=== PATIENT | female | born 2000 | race Caucasian/White ===

== ENCOUNTER 2025-06-16 11:12 | Emergency (ER) | payer OTHER, SELFPAY ==
[2025-06-16 11:18] VITALS: BP 150/88; PULSE 87; RESP 20; TEMP 36.6; O2SAT 100
--- NOTE | 2025-06-16 11:28 | ED_ITS ---
HPI - Ear Problem General Chief complaint: Ear Stated complaint: right ear Time Seen by Provider: 06/16/25 11:28 Source: patient Mode of arrival: ambulatory Limitations: no limitations History of Present Illness HPI Narrative: 24 yo F presents with R ear pain for 3 days. URI symptoms for 1 wk. States her children tested positive for flu B so she assumed she had it. Taking OTC to treat flu symptoms. Afebrile. All systems reviewed and negative except as noted above. Related Data Home Medications ?Medication ?Instructions ?Recorded ?Confirmed ?Last Taken ?Type ferrous sulfate 325 mg (65 mg mg 06/16/25 Unknown His tory iron) tablet (FeroSul) sertraline 25 mg tablet mg 06/16/25 Unknown History sertraline 50 mg tablet mg 06/16/25 Unknown History Allergies Allergy/AdvReac Type Severity Reaction Status Date / Time latex Allergy Unknown Unknown Verified 06/16/25 11:23 [facility] At time of signature, agree with nursing past medical, surgical, social and family history. There is no relevant family history pertinent to the presenting complaint. Exam Narrative: GENERAL: This is a well-nourished, well-developed patient, in no apparent distress. HEAD: normocephalic, atraumatic. EYES: PERRL. Sclera clear/white. Vision is grossly intact. EARS: External ears normal, auditory canals clear and without drainage, Clear fluid to left TM with no erythema. Right TM is erythematous, bulging with purulent fluid. No perforation bilaterally. NOSE: External nose normal with Mild congestion, clear nasal drainage THROAT: Mucous membranes moist, posterior pharynx clear. NECK: Neck supple, non-tender without lymphadenopathy, masses or thyromegaly. CARDIOVASCULAR: Regular rate and rhythm without murmurs, gallops, or rubs. RESPIRATORY: Clear to auscultation. Breath sounds equal bilaterally. No wheezes, rales, or rhonchi. SKIN: warm, Dry, intact with no suspicious lesions or rash, good texture and turgor. NEURO: awake, alert, and oriented to person, place and time. There were no obvious focal neurologic abnormalities. EXTREMITIES: No joint tenderness, effusion, or edema noted. Course Course Level of Care: Express Care Visit Vital Signs Vital signs: Vital Signs Temperature 36.6 C 06/16/25 11:18 Pulse Rate 87 06/16/25 11:18 Respiratory Rate 20 06/16/25 11:18 Blood Pressure 150/88 H 06/16/25 11:18 Pulse Oximetry 100 06/16/25 11:18 Oxygen Delivery Room Air 06/16/25 11:18 Temperature 36.6 C 06/16/25 11:18 Pulse Rate 87 06/16/25 11:18 Respiratory Rate 20 06/16/25 11:18 Blood Pressure 150/88 H 06/16/25 11:18 Pulse Oximetry 100 06/16/25 11:18 Oxygen Delivery Room Air 06/16/25 11:18 reviewed Medical Decision Making MDM Narrative Medical decision making narrative: will treat right otitis media with amoxicillin. Patient is well-appearing, nontoxic. Agrees with plan of care. Vital Signs Vital Signs: Vital Signs Temperature 36.6 C 06/16/25 11:18 Pulse Rate 87 06/16/25 11:18 Respiratory Rate 20 06/16/25 11:18 Blood Pressure 150/88 H 06/16/25 11:18 Pulse Oximetry 100 06/16/25 11:18 Oxygen Delivery Room Air 06/16/25 11:18 Temperature 36.6 C 06/16/25 11:18 Pulse Rate 87 06/16/25 11:18 Respiratory Rate 20 06/16/25 11:18 Blood Pressure 150/88 H 06/16/25 11:18 Pulse Oximetry 100 06/16/25 11:18 Oxygen Delivery Room Air 06/16/25 11:18 Discharge Plan Discharge Clinical Impression: Acute otitis media, right Patient Disposition: Home Condition: Stable Instructions: Antibiotic Form, Ear Infection (ED) Additional Instructions: Take antibiotic as prescribed until gone. Take ibuprofen or Tylenol every 6-8 hours as needed for pain. Follow-up with your primary care physician as needed. Patient Language: Yakut Prescriptions: New amoxicillin 875 mg tablet 875 mg PO Q12H 10 Days Qty: 20 0RF No Action ferrous sulfate [FeroSul] 325 mg (65 mg iron) tablet sertraline 25 mg tablet sertraline 50 mg tablet Follow-up/Referrals: PHYSICIAN,CHEESE COOKER [Primary Care Provider, Internal Medicine] Time of Disposition: 11:32
--- OUTSIDE RECORDS SUMMARY | 2025-06-16 11:33 | XMS_ITS | Clinical Summary ---
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 Epidural: Approach: midline Imaging guidance used: no Location: L3-4 Number of attempts:1 Epidural needle: Injection technique: ANGELES air and ANGELES saline Needle type: Tuohy Needle gauge: 18 G Needle length: 9 cm Loss of resistance: 7 cm Catheter: Catheter type: multi-orifice. Catheter at skin depth: 12 cm Negative aspiration of blood: no Negative aspiration of CSF: no Test dose: negative (3mL 1.5% Lido w epi 1:200k) Assessment: Sensory level - left: full eval pending Sensory level - right: full eval pending Events: patient tolerated procedure well with no complications us Brisa Bennett MD ANESTHESIA ORDERABL ES Final Result * eGFR (04/25/2025 10:05 PM CDT) eGFR >90 >=60 mL/min/1. 73 m2 Comment: Interpretive Data Reference Interval Normal >/= 90 mL/min/1.73m2 Mildly decreased* 60 - 89 mL/min/1.73m2 Mildly to moderately decreased 45 - 59 mL/min/1.73m2 Moderately to severely decreased 30 - 44 mL/min/1.73m2 Severely decreased 15 - 29 mL/min/1.73m2 Kidney Failure < 15 mL/min/1.73m2 *Relative to young adult level Estimated glomerular filtration rate is determined by the 2020 CKD-EPI equation recommended by the National Kidney Foundation (A Unifying Approach to GFR Estimation: Recommendations of the NKF-ASK Task Force on Reassessing the Inclusion of Race in Diagnosing Kidney Disease, JASN 2020). The CKD-EPI equation should not be used for patients with unstable renal function and has not been validated in children and those over 70. Current interpretive data was last reviewed 2021. Blood 04/25/2025 10:0 5 PM CDT 04/26/2025 3:26 AM CDT us Brisa Bennett MD LAB BLOOD ORDERABLE S Final Result [facility] ([place]OM[place] [facility]) 1 [facility] [place] [address] * (ABNORMAL) Differential, auto (04/25/2025 10:05 PM CDT) Neutrophil abs 10.89(H) 1.50 - 6.50 K/cumm Imm gran abs 0.10 0.00 - 0.10 K/cumm [facility] (JUDIE) Lymphocyte abs 1.81 0.80 - 3.30 K/cumm [facility] (JUDIE) Monocyte abs 0.67 0.20 - 0.80 K/cumm [facility] (JUDIE) Eosinophil abs 0.04 0.00 - 0.50 K/cumm [facility] (JUDIE) Basophil abs 0.02 0.00 - 0.10 K/cumm [facility] (JUDIE) Neutrophil pct 80.5 % [facility] (JUDIE) Comment: Interpretive Data Percent cell count reference ranges are not reported, since discordance with absolute values may lead to misinterpretation of CBC data. Current Interpretive Data was last revised on 2018. Imm gran pct 0.7 % [facility] (JUDIE) Comment: Interpretive Data Percent cell count reference ranges are not reported, since discordance with absolute values may lead to misinterpretation of CBC data. Current Interpretive Data was last revised on 2018. Lymphocyte pct 13.4 % [facility] (JUDIE) Comment: Interpretive Data Percent cell count reference ranges are not reported, since discordance with absolute values may lead to misinterpretation of CBC data. Current Interpretive Data was last revised on 2018. Monocyte pct 5.0 % [facility] (JUDIE) Comment: Interpretive Data Percent cell count reference ranges are not reported, since discordance with absolute values may lead to misinterpretation of CBC data. Current Interpretive Data was last revised on 2018. Eosinophil pct 0.3 % [facility] (JUDIE) Comment: Interpretive Data Percent cell count reference ranges are not reported, since discordance with absolute values may lead to misinterpretation of CBC data. Current Interpretive Data was last revised on 2018. Basophil pct 0.1 % [facility] (JUDIE) Comment: Interpretive Data Percent cell count reference ranges are not reported, since discordance with absolute values may lead to misinterpretation of CBC data. Current Interpretive Data was last revised on 2018. Blood 04/25/2025 10:0 5 PM CDT 04/25/2025 10:10 PM CDT us Brisa Bennett MD LAB BLOOD ORDERABLE S Final Result ÁNGEL [facility] (JUDIE) 1 [facility] [place] [address] * (ABNORMAL) CBC with auto differential (04/25/2025 10:05 PM CDT) WBC 13.53(H) 3.80 - 9.90 K/cumm Hgb 11.2(L) 11.9 - 15.5 g/dL ÁNGEL [facility] (JUDIE) Hct 33.9(L) 35.6 - 45.5 % [facility] (JUDIE) Plt 240 150 - 400 K/cumm [facility] (JUDIE) MPV 11.3 9.1 - 12.3 fL [facility] ([facility]UD[facility]) RBC 3.83(L) 3.90 - 5.20 M/cumm [facility] (JUDIE) MCV 88.5 81.3 - 96.4 fL [facility] (JUDIE) MCH 29.2 27.1 - 33.3 pg Á[facility]EL [facility] (JUDIE) MCHC 33.0 32.3 - 35.7 g/dL [facility] (JUDIE) RDW CV 13.2 11.1 - 14.9 % [facility] (JUDIE) RDW SD 42.8 35.7 - 48.1 fL [facility] (JUDIE) NRBC abs 0.00 0.00 - 0.01 K/cumm [facility] (JUDIE) Blood 04/25/2025 10:0 5 PM CDT 04/25/2025 10:10 PM CDT us Brisa Bennett MD LAB BLOOD ORDERABLE S Final Result ÁNGEL [facility] (JUDIE) 1 [facility] [place] [address] * ABO/Rh (04/25/2025 10:05 PM CDT) ABO/Rh O Positive Blood 04/25/2025 10:0 5 PM CDT 04/25/2025 10:10 PM CDT Narrative [facility] (JUDIE) - 04/25/2025 11:09 PM CDT Has the patient had Daratumumab or Isatuximab in the past 6 months?->Unknown Brisa Bennett MD LAB BLOOD BANK TEST ORDERABLES Final Result ÁNGEL [facility]DON[facility] (JUDIE) 1 [facility] [employer] [place] [address] [place] [address] * RPR Blood (04/25/2025 10:05 PM CDT) RPR Nonreactive Nonreactive Comment:Testing performed by : [facility], [address] [place] [address], [place]., [address] Blood 04/25/2025 10:0 5 PM CDT 04/26/2025 9:40 AM CDT us Brisa Bennett MD LAB MICROBIOLOGY - GENERAL ORDERABLES Final Result ÁNGEL MALDONAD[facility] ([place]) [address] [place] [address] * Antibody screen (04/25/2025 10:05 PM CDT) [facility] Sallie, indirect, Gel Interpretation Negative ABSC Blood 04/25/2025 10:0 5 PM CDT 04/25/2025 10:10 PM CDT Narrative [facility] (SOM[place]) - 04/25/2025 11:09 PM CDT Has the patient had Daratumumab or Isatuximab in the past 6 months?->Unknown us Brisa Bennett MD LAB BLOOD BANK TEST ORDERABLES Final Result Performing Organization Address [facility] Co de Phone Number ÁNGEL MALDON[facility] (SOMES BAR) 1 [facility] [address] [place] [address] * Uric acid (04/25/2025 10:05 PM CDT) [facility] Uric acid 4.8 2.5 - 7.0 mg/dL Blood 04/25/2025 10:0 5 PM CDT 04/26/2025 3:26 AM CDT Brisa Bennett MD LAB BLOOD ORDERABLE S Final Result Performing Organization Address City/[facility]/ZIP Co de Phone Number ÁNGEL [facility]DON[facility] (SOMES BAR) 1 [place] [address] * Lactate dehydrogenase (LD) (04/25/2025 10:05 PM CDT) Lactate dehydrogenase (LDH) 165 100 - 250 Units/L Blood 04/25/2025 10:0 5 PM CDT 04/26/2025 3:26 AM CDT us Brisa Bennett MD LAB BLOOD ORDERABLE S Final Result [facility] ([place] [facility]) 1 [facility] [place] [address] * (ABNORMAL) Comprehensive metabolic panel (04/25/2025 10:05 PM CDT) Sodium 139 135 - 145 mmol/L Potassium, pl 4.0 3.3 - 4.9 mmol/L [facility] (JUDIE) Chloride 104 97 - 110 mmol/L [facility] (JUDIE) CO2 21(L) 22 - 32 mmol/L [facility] (JUDIE) Anion gap 14 2 - 15 mmol/L [facility] (JUDIE) BUN 5(L) 6 - 25 mg/dL [facility] (JUDIE) Creatinine 0.60 0.60 - 1.10 mg/dL [facility] (JUDIE) Glucose 79 70 - 199 mg/dL [facility] Comment: Interpretive Data Fasting glucose >/= 126 mg/dl is diagnostic for diabetes. Fasting is defined as no caloric intake for at least 8 hours. Fasting glucose between 100 mg/dl to 125 mg/dl is diagnostic of prediabetes. In a patient with classic symptoms of hyperglycemia or hyperglycemic crisis, a random glucose >/= 200 mg/dl is diagnostic for diabetes. In the absence of unequivocal hyperglycemia, results should be confirmed by repeat testing. The classification and Diagnosis of Diabetes Diabetes Care 202; 46: S19-S40. Current interpretive data was last revised 2022. Calcium 8.6 8.5 - 10.3 mg/dL [facility] (JUDIE) Bilirubin, total 0.2 0.1 - 1.2 mg/dL [facility] (JUDIE) Protein, pl 6.2(L) 6.5 - 8.5 g/dL [facility] (JUDIE) Albumin 3.3(L) 3.5 - 5.0 g/dL [facility] (JUDIE) Alk phos 148(H) 40 - 130 Units/L [facility] (JUDIE) ALT 13 7 - 45 Units/L [facility] (JUDIE) AST 15 10 - 45 Units/L [facility] (JUDIE) Blood 04/25/2025 10:0 5 PM CDT 04/26/2025 3:26 AM CDT us Brisa Bennett MD LAB BLOOD ORDERABLE S Final Result ÁNGEL MALDONADO (JUDIE) 1 [facility] [address] [place] [address] * ROM Plus (IGFBP-1/AFP) (04/25/2025 8:20 PM CDT) Pathologist [facility] IFG Binding Protein-1 / AFP Positive Swab 04/25/2025 8:20 PM CDT 04/25/2025 8:34 PM CDT us Brisa Bennett MD LAB BODY FLUIDS AND STOOLS ORDERABLES Final Result Performing Organization Address City/[facility] Co de Phone Number ÁNGEL MALDONADO (SOMES BAR) 1 [facility] [place] [address] * POCT urine glucose and protein (04/22/2025 1:26 PM CDT) Pathologist [facility] Glucose, ur, POC Negative Negative Protein, ur, POC Negative Negative Lot Number [id number] Urine 04/22/2025 1:26 PM CDT us Fatoumata Sellers MD POINT OF CARE TEST OR DERABLES Final Result * Group B streptococcal culture Vaginal/Rectal (04/15/2025 7:33 PM CDT) Report Final Report: Negative Comment:Testing performed by : [facility], 1 [facility] [place]., [address] Vaginal/Rectal 04/15/2025 7: 33 PM CDT 04/15/2025 10:26 PM CDT Narrative ÁNGEL RANGEL - 04/19/2025 9:31 AM CDT Testing performed by [facility] ([phone]). us Fatoumata Sellers MD LAB MICROBIOLOGY - GE NERAL ORDERABLES Final Result ÁNGEL [address] Department [place] [address] * POCT urine glucose and protein (04/15/2025 8:32 AM CDT) Glucose, ur, POC Negative Negative Protein, ur, POC Negative Negative Lot Number [id number] Urine 04/15/2025 8:32 AM CDT Fatoumata Sellers MD POINT OF CARE TEST OR DERABLES Final Result * US Ob Follow Up (04/15/2025 8:24 AM CDT) Anatomical Region Laterality Modality Abdomen N/A Ultrasound 04/18/2025 10:1 9 PM CDT Narrative 04/18/2025 10:22 PM CDT EXAM DESCRIPTION: US OB FOLLOW UP REASON FOR STUDY: large for dates, Check measurements and fluid levels S>D growth and kati TECHNIQUE: Limited transabdominal grayscale ultrasound for obstetrical evaluation. COMPARISON: Prior exam 03/17/2025 FINDINGS: Clinical gestational age: 36 weeks 2 days Clinical estimated Due Date: 05/11/2025 number: Single live intrauterine . Presentation: Cephalic Placenta location: Posterior and fundal. No previa. Amniotic fluid: KATI is 15.3 cm. MVP is 5.8 cm heart rate: 128 bpm measurements: Biparietal diameter: 8.8 cm ( 35 weeks 3 days ) Head circumference: 31.5 cm ( 35 weeks 2 days ) Abdominal circumference: 32.3 cm ( 36 weeks 2 days ) Femur length: 7.1 cm ( 3 6 weeks 2 days ) Ratios: FL/AC: 21.9 (20-24) HC/AC: 0.97 ( 0.93 - 1.09 ) Gestational age by this ultrasound: 35 weeks 4 days MAK by this ultrasound: 05/16/2025 Estimated weight by this ultrasound: 2838 g . 6 pounds 4 ounces. EFW percentile (based on LMP ): 46 % Cervix not well seen on this exam. IMPRESSION: 1. Single live intrauterine with average ultrasound age of 35 weeks 4 days with estimated date of delivery of May 16, 2025. 2. Estimated weight 2838 g 3. KATI is 15.3 cm. THIS IS AN ELECTRONICALLY VERIFIED FINAL REPORT 04/18/2025 10:22 PM - Electronically signed by Lorenzo Ibarra M.D. MJ: MARIA GUADALUPE Report ID: [id number] Reading Location: [id number] Procedure Note Lorenzo Ibarra MD - 04/18/2025 EXAM DESCRIPTION: US OB FOLLOW UP REASON FOR STUDY: large for dates, Check measurements and fluid levels S>D growth and kati TECHNIQUE: Limited transabdominal grayscale ultrasound for obstetrical evaluation. COMPARISON: Prior exam 03/17/2025 FINDINGS: Clinical gestational age: 36 weeks 2 days Clinical estimated Due Date: 05/11/2025 number: Single live intrauterine . Presentation: Cephalic Placenta location: Posterior and fundal. No previa. Amniotic fluid: KATI is 15.3 cm. MVP is 5.8 cm heart rate: 128 bpm measurements: Biparietal diameter: 8.8 cm ( 35 weeks 3 days ) Head circumference: 31.5 cm ( 35 weeks 2 days ) Abdominal circumference: 32.3 cm ( 36 weeks 2 days ) Femur length: 7.1 cm ( 3 6 weeks 2 days ) Ratios: FL/AC: 21.9 (20-24) HC/AC: 0.97 ( 0.93 - 1.09 ) Gestational age by this ultrasound: 35 weeks 4 days MAK by this ultrasound: 05/16/2025 Estimated weight by this ultrasound: 2838 g . 6 pounds 4 ounces. EFW percentile (based on LMP ): 46 % Cervix not well seen on this exam. IMPRESSION: 1. Single live intrauterine with average ultrasound age of 35 weeks 4 days with estimated date of delivery of May 16, 2025. 2. Estimated weight 2838 g 3. KATI is 15.3 cm. THIS IS AN ELECTRONICALLY VERIFIED FINAL REPORT 04/18/2025 10:22 PM - Electronically signed by Lorenzo Ibarra M.D. MJ: MARIA GUADALUPE Report ID: [id number] Reading Location: [place] [address] us Fatoumata Sellers MD IMG OB US PROCEDURES Final Result * Group B streptococcal culture (04/15/2025) SCRIBED Group B Strep Negative Negative us Fatoumata Sellers MD LAB MICROBIOLOGY - NERMT ORDERABLES Final Result * eGFR (04/13/2025 3:42 AM CDT) eGFR >90 >=60 mL/min/1. 73 m2 Comment: Interpretive Data Reference Interval Normal >/= 90 mL/min/1.73m2 Mildly decreased* 60 - 89 mL/min/1.73m2 Mildly to moderately decreased 45 - 59 mL/min/1.73m2 Moderately to severely decreased 30 - 44 mL/min/1.73m2 Severely decreased 15 - 29 mL/min/1.73m2 Kidney Failure < 15 mL/min/1.73m2 *Relative to young adult level Estimated glomerular filtration rate is determined by the 2020 CKD-EPI equation recommended by the National Kidney Foundation (A Unifying Approach to GFR Estimation: Recommendations of the NKF-ASK Task Force on Reassessing the Inclusion of Race in Diagnosing Kidney Disease, JASN 2020). The CKD-EPI equation should not be used for patients with unstable renal function and has not been validated in children and those over 70. Current interpretive data was last reviewed 2021. Blood 04/13/2025 3:42 AM CDT 04/13/2025 3:46 AM CDT us Isabela Meléndez DO LAB BLOOD ORDERABLES Fi nal Result ÁNGEL MALDONADO (SOMES BAR) 1 [facility] [place] [address] * (ABNORMAL) Differential, auto (04/13/2025 3:42 AM CDT) Neutrophil abs 12.44(H) 1.50 - 6.50 K/cumm Imm gran abs 0.10 0.00 - 0.10 K/cumm [facility] ([facility]OM[facility]) Lymphocyte abs 2.46 0.80 - 3.30 K/cumm [facility] ([place]OM[facility]) Monocyte abs 0.78 0.20 - 0.80 K/cumm [facility] ([place]) Eosinophil abs 0.04 0.00 - 0.50 K/cumm [facility] ([place] [facility]) Basophil abs 0.03 0.00 - 0.10 K/cumm [facility] ([place]) Neutrophil pct 78.5 % [facility] ([place]OM[place] [facility]) Comment: Interpretive Data Percent cell count reference ranges are not reported, since discordance with absolute values may lead to misinterpretation of CBC data. Current Interpretive Data was last revised on 2018. Imm gran pct 0.6 % [facility] ([place] [facility]) Comment: Interpretive Data Percent cell count reference ranges are not reported, since discordance with absolute values may lead to misinterpretation of CBC data. Current Interpretive Data was last revised on 2018. Lymphocyte pct 15.5 % [facility] ([place] [facility]) Comment: Interpretive Data Percent cell count reference ranges are not reported, since discordance with absolute values may lead to misinterpretation of CBC data. Current Interpretive Data was last revised on 2018. Monocyte pct 4.9 % [facility] ([place] [facility]) Comment: Interpretive Data Percent cell count reference ranges are not reported, since discordance with absolute values may lead to misinterpretation of CBC data. Current Interpretive Data was last revised on 2018. Eosinophil pct 0.3 % [facility] ([place] [facility]) Comment: Interpretive Data Percent cell count reference ranges are not reported, since discordance with absolute values may lead to misinterpretation of CBC data. Current Interpretive Data was last revised on 2018. Basophil pct 0.2 % [facility] (JUDIE) Comment: Interpretive Data Percent cell count reference ranges are not reported, since discordance with absolute values may lead to misinterpretation of CBC data. Current Interpretive Data was last revised on 2018. Blood 04/13/2025 3:42 AM CDT 04/13/2025 3:46 AM CDT us Isabela Meléndez DO LAB BLOOD ORDERABLES Fi nal Result [facility] (JUDIE) 1 [facility] [place] [address] * (ABNORMAL) CBC with auto differential (04/13/2025 3:42 AM CDT) WBC 15.85(H) 3.80 - 9.90 K/cumm Hgb 12.1 11.9 - 15.5 g/dL [facility] (JUDIE) Hct 36.6 35.6 - 45.5 % [facility] (JUDIE) Plt 283 150 - 400 K/cumm [facility] (JUDIE) MPV 11.6 9.1 - 12.3 fL [facility] (JUDIE) RBC 4.07 3.90 - 5.20 M/cumm [facility] (JUDIE) MCV 89.9 81.3 - 96.4 fL [facility] (JUDIE) MCH 29.7 27.1 - 33.3 pg [facility] (JUDIE) MCHC 33.1 32.3 - 35.7 g/dL [facility] (JUDIE) RDW CV 13.3 11.1 - 14.9 % [facility] (JUDIE) RDW SD 43.7 35.7 - 48.1 fL [facility] (JUDIE) NRBC abs 0.00 0.00 - 0.01 K/cumm [facility] (JUDIE) Blood 04/13/2025 3:42 AM CDT 04/13/2025 3:46 AM CDT Isabelaflorentino Zuñigath Medhat DO LAB BLOOD ORDERABLES Fi nal Result Performing Organization Address City/[facility] Hospital/ZIP Co de Phone Number ÁNGEL MALDONADO (SOMES BAR) 1 [facility] [address] [place] [address] * Uric acid (04/13/2025 3:42 AM CDT) Pathologist [facility] Uric acid 4.6 2.5 - 7.0 mg/dL Blood 04/13/2025 3:42 AM CDT 04/13/2025 3:46 AM CDT Isabela Oneilzabeth Medhat LAB BLOOD ORDERABLES Fi nal Result Performing Organization Address [facility] Co de Phone Number ÁNGEL MALDONADO (SOMES BAR) 1 [facility] [address] [place] [address] * Lactate dehydrogenase (LD) (04/13/2025 3:42 AM CDT) [facility] Lactate dehydrogenase (LDH) 199 100 - 250 Units/L Comment: Hemolysis present. Results may be affected. Slightly Hemolyzed Specimen Blood 04/13/2025 3:42 AM CDT 04/13/2025 3:46 AM CDT Isabela Danna Medhat DO LAB BLOOD ORDERABLES Fi nal Result Performing Organization Address City/[facility]/ZIP Co de Phone Number ÁNGEL MALDON[facility] (SOMES BAR) 1 [facility] [place] [address] * (ABNORMAL) Comprehensive metabolic panel (04/13/2025 3:42 AM CDT) Pathologist [facility] Sodium 138 135 - 145 mmol/L Potassium, pl 3.7 3.3 - 4.9 mmol/L [facility] (JUDIE) Chloride 101 97 - 110 mmol/L [facility] (JUDIE) CO2 21(L) 22 - 32 mmol/L [facility] (JUDIE) Anion gap 16(H) 2 - 15 mmol/L [facility] (JUDIE) BUN 6 6 - 25 mg/dL [facility] (JUDIE) Creatinine 0.56(L) 0.60 - 1.10 mg/dL [facility] (JUDIE) Glucose 67(L) 70 - 199 mg/dL [facility] (JUDIE) Comment: Interpretive Data Fasting glucose >/= 126 mg/dl is diagnostic for diabetes. Fasting is defined as no caloric intake for at least 8 hours. Fasting glucose between 100 mg/dl to 125 mg/dl is diagnostic of prediabetes. In a patient with classic symptoms of hyperglycemia or hyperglycemic crisis, a random glucose >/= 200 mg/dl is diagnostic for diabetes. In the absence of unequivocal hyperglycemia, results should be confirmed by repeat testing. The classification and Diagnosis of Diabetes Diabetes Care 2021; 46: S19-S40. Current interpretive data was last revised 2022. Calcium 9.2 8.5 - 10.3 mg/dL [facility] (JUDIE) Bilirubin, total 0.3 0.1 - 1.2 mg/dL [facility] (JUDIE) Protein, pl 6.9 6.5 - 8.5 g/dL [facility] (JUDIE) Albumin 3.5 3.5 - 5.0 g/dL [facility] (JUDIE) Alk phos 168(H) 40 - 130 Units/L [facility] (JUDIE) ALT 26 7 - 45 Units/L [facility] (JUDIE) AST 26 10 - 45 Units/L [facility] (JUDIE) Blood 04/13/2025 3:42 AM CDT 04/13/2025 3:46 AM CDT us Isabela Meléndez DO LAB BLOOD ORDERABLES Fi nal Result [facility] (JUDIE) 1 [facility] [place] [address] * (ABNORMAL) Urinalysis reflex to microscopic and culture Urine, clean voided (04/13/2025 1:30 AM CDT) Color, ur Yellow Yellow Clarity, ur Turbid(A) Clear [facility] (JUDIE) Specific gravity, ur 1.028 1.003 - 1.030 [facility] (JUDIE) pH, urine 6.0 [facility] (JUDIE) Comment: Interpretive Data U rine pH is affected by diet, medications, systemic acid-base disturbances, and renal tubular function. pH may affect urinary stone formation. For example, urine pH below 6.0 may help reduce the tendency for calcium phosphate stones and pH greater than 6.0 may reduce the tendency for uric acid stone formation. Source: [facility] Current Interpretive Data was last revised on 2017 Protein, ur ql 1+(A) Negative [facility] (JUDIE) Glucose, ur ql Negative Negative [facility] (JUDIE) Ketones, ur Trace Negative [facility] (JUDIE) Bilirubin, ur Negative Negative [facility] (JUDIE) Blood, ur Negative Negative [facility] (JUDIE) Urobilinogen, ur 2.0(A) <2.0 mg/dL [facility] ([place]) Nitrite, ur Negative Negative [facility] (JUDIE) Leukocyte esterase, ur 4+(A) Negative [facility] (JUDIE) UA reflex comment Reflex to microscopic UA will be performed. [facility] (JUDIE) Urine, clean voided 04/13/2025 1:30 AM CDT 04/13/2025 1:34 AM CDT Isabela Meléndez DO LAB MICROBIOLOGY - GENE [facility] ORDERABLES Final Result [facility] (SOMES BAR) 1 [facility] [place] [address] * Protein / creatinine ratio, urine, random (04/13/2025 1:30 AM CDT) Protein, ur, quant 35.0 mg/dL Comment: Interpretive Data No reference range established. Current interpretive data was last revised 2019. Creatinine Ur 286.3 mg/dL [facility] (JUDIE) Comment: Interpretive Data No reference range established. Current interpretive data was last revised 2019. Protein/creatinin e ratio 122.2 0.0 - 180.0 mg/g [facility] (JUDIE) Urine 04/13/2025 1:30 AM CDT 04/13/2025 1:53 AM CDT us Fatoumata Sellers MD LAB URINE ORDERABLES Final Result Performing Organization Address City/State/[facility] Co de Phone Number ÁNGEL MALDONADO (JUDIE) 1 [facility] [place] [address] * (ABNORMAL) Urinalysis, microscopic only (04/13/2025 1:30 AM CDT) WBC, ur 21-50(A) 0 - 5 /HPF RBC, ur 0-2 0 - 2 /HPF [facility] (JUDIE) Epithelial cells, squamous, ur 11-20(A) 0 - 5 /HPF [facility] (JUDIE) Bacteria, ur 1+(A) [facility] (JUDIE) Mucous, ur Present(A) [facility] (JUDIE) Calcium oxalate crystals, ur 1+(A) [facility] (JUDIE) Hyaline casts, ur 1-5 0 - 10 /LPF [facility] (JUDIE) Culture Reflex Comment Reflex to urine culture will be performed. [facility] (JUDIE) Urine, clean voided 04/13/2025 1:30 AM CDT 04/13/2025 1:34 AM CDT Isabela Meélndez DO LAB URINE ORDERABLES Fi nal Result ÁNGEL MALDONADO (JUDIE) 1 [facility] [place] [address] * Urine culture Urine, clean voided (04/13/2025 1:30 AM CDT) Report Final Report: Less than 100,000 colonies/mL (clinically insignificant growth based on current clinical standards) Comment:Testing performed by : [facility], [address] [facility], [place]., [address] Organism (CLINICALLY INSIGNIFICANT GROWTH [facility] (JUDIE) Urine, clean voided 04/13/2025 1:30 AM CDT 04/13/2025 8:26 AM CDT Narrative ÁNGEL MALDONADO (JUDIE) - 04/16/2025 2:40 PM CDT Urine culture reflexed based upon urinalysis results. Testing performed by [facility] ([phone]) Isabela Mleéndez DO LAB MICROBIOLOGY - GENE RAL ORDERABLES Final Result ÁNGEL MALDONADO (JUDIE) 1 [facility] Department [place] [address] * (ABNORMAL) POCT urine glucose and protein (04/02/2025 11:31 AM CDT) Glucose, ur, POC Negative Negative Protein, ur, POC Trace(A) Negative Lot Number [id number] Urine 04/02/2025 11:3 1 AM CDT Fatoumata Sellers MD POINT OF CARE TEST OR DERABLES Final Result * POCT urine glucose and protein (03/17/2025 8:54 AM CDT) Glucose, ur, POC Negative Negative Protein, ur, POC Negative Negative Lot Number [id number] Urine 03/17/2025 8:54 AM CDT Fatoumata Sellers MD POINT OF CARE TEST OR DERABLES Final Result * US Ob Follow Up (03/17/2025 8:48 AM CDT) Anatomical Region Laterality Modality Abdomen N/A Ultrasound 03/29/2025 7:20 AM CDT Narrative 03/29/2025 7:23 AM CDT EXAM DESCRIPTION: US OB FOLLOW UP REASON FOR STUDY: large for dates, Check measurements and fluid levels S>D growth and kati TECHNIQUE: Limited transabdominal grayscale ultrasound for obstetrical evaluation. COMPARISON: 12/24/2024. FINDINGS: The clinical age is 32 weeks 1 day with an MAK 05/11/2025. Single intrauterine with cephalic presentation. The placenta is posterior with no evidence of central previa. heart rate 136 beats per minute. Amniotic fluid index is 20.1 cm. BPD is 8.19 cm corresponding to 32 weeks 6 days. HC 29.96 cm corresponding to 33 weeks 1 day. AC is 30.42 cm corresponding to 34 weeks 3 days. FL is 6.19 cm corresponding to 32 weeks 1 day. The growth ratios are all normal. The estimated weight based on this ultrasound is 2205 g +/-331 g (4 pounds 14 ounces +/-12 ounces) which is at the 81st percentile. IMPRESSION: 1. Single intrauterine with cephalic presentation. 2. Expected interval growth with normal growth ratios. Estimated weight 81st percentile. 3. Amniotic fluid index 20.1 cm. THIS IS AN ELECTRONICALLY VERIFIED FINAL REPORT 03/29/2025 7:23 AM - Electronically signed by German Isaac M.D. CH: Report ID: [id number] Reading Location: [id number] Procedure Note German Isaac Jr., MD - 03/29/2025 EXAM DESCRIPTION: US OB FOLLOW UP REASON FOR STUDY: large for dates, Check measurements and fluid levels S>D growth and kati TECHNIQUE: Limited transabdominal grayscale ultrasound for obstetrical evaluation. COMPARISON: 12/24/2024. FINDINGS: The clinical age is 32 weeks 1 day with an MAK 05/11/2025. Single intrauterine with cephalic presentation. The placenta is posterior with no evidence of central previa. heart rate 136 beats per minute. Amniotic fluid index is 20.1 cm. BPD is 8.19 cm corresponding to 32 weeks 6 days. HC 29.96 cm corresponding to 33 weeks 1 day. AC is 30.42 cm corresponding to 34 weeks 3 days. FL is 6.19 cm corresponding to 32 weeks 1 day. The growth ratios are all normal. The estimated weight based on this ultrasound is 2205 g +/-331 g (4 pounds 14 ounces +/-12 ounces) which is at the 81st percentile. IMPRESSION: 1. Single intrauterine with cephalic presentation. 2. Expected interval growth with normal growth ratios. Estimated weight 81st percentile. 3. Amniotic fluid index 20.1 cm. THIS IS AN ELECTRONICALLY VERIFIED FINAL REPORT 03/29/2025 7:23 AM - Electronically signed by German Isaac M.D. CH: CLAIRE Report ID: [id number] Reading Location: [place] [address] Fatoumata Sellers MD IMG OB US PROCEDURES Final Result * Hepatitis C antibody Blood (10/02/2024 3:31 PM UTILITY LOCATOR) Hep C Ab Nonreactive Nonreactive Comment: Interpretive Data Nonreactive: Antibodies to HCV not detected. Does NOT exclude the possibility of recent exposure to HCV. Equivocal: Equivocal for HCV antibodies. Supplemental molecular testing will be automatically performed to determine infection status in accordance with current CDC screening recommendations. Reactive: Positive for HCV antibodies. This may represent current or past HCV infection. Supplemental molecular testing will be automatically performed to determine current infection status in accordance with current CDC screening recommendations. Interpretive data was last revised on 2020. Testing performed by: [facility], [address] [place] [address]., [id number] Blood 10/02/2024 3:31 PM UTILITY LOCATOR 10/02/2024 9:34 PM UTILITY LOCATOR Fatoumata Sellers MD LAB MICROBIOLOGY - GE NERAL ORDERABLES Final Result [address] Department [place] [address] * Pap with reflex to High Risk HPV and Genotyping (Cytology Component) (10/02/2024 11:11 AM UTILITY LOCATOR) Thin prep (Pap test) 10/02/2024 11:11 AM UTILITY LOCATOR 10/02/2024 11:11 AM UTILITY LOCATOR Narrative PATHOLOGY CH - 10/06/2024 2:07 PM UTILITY LOCATOR [facility] Department of Pathology [address] [place], [place] [id number] Final Report Note to Patients: This report may contain a detailed description of human tissue sent by a health care provider to the laboratory for pathologic evaluation. The content of this report is essential for diagnosis and may provide important critical findings. This information may be unfamiliar to patients to review without a medical professional present. It is advised that the patient review this report in the presence of a health care provider who can answer questions and explain the details. Patient Name: KATELYNN RODRIGUEZ [address]: [address] [place] [address] Gender: F : 2000 (Age: 23) Service: Location: N : [id number] [facility] #: [id number] Patient Type: SPECIMEN Taken: 10/02/2024 Received: 10/02/2024 Accessioned:: 10/05/2024 Reported: 10/06/2024 Physician(s): MD Fatoumata Cintron MD Diagnosis: SOURCE OF SPECIMEN Imaged Thinprep Pap Test w/ Reflex HPV - [employer] Cytologic Material: STATEMENT OF ADEQUACY - Satisfactory for evaluation; endocervical/transformation zone component present GENERAL CATEGORIZATION: - Negative for intraepithelial lesion or malignancy THA Alejo(ASCP) Report Electronically Reviewed and Signed Out By THA Alejo(ASCP) 10/06/2024 14:07:09Specimen(s) Received: A: Imaged Thinprep Pap Test w/ Reflex HPV - [employer] Cytologic Material Clinical History: Last Menstrual Period: 07/22/24 Menstrual History: The Pap test is a screening test used to aid in the detection of cervical cancer and its precursors. It should not be the sole means by which malignant and premalignant lesions are diagnosed. Both false negative and false positive results may occur. It also has poor sensitivity for the detection of endometrial lesions and should not be used to evaluate suspected endometrial abnormalities. For these reasons it is most important to obtain Pap tests at regular intervals. The performance characteristics of some immunohistochemical stains, fluorescence in-situ hybridization tests and immunophenotyping by flow cytometry cited in this report (if any) were determined by the Surgical Pathology Department at [facility] as part of an ongoing quality assurance qa lab analyst program and in compliance with federally mandated regulations drawn from the Clinical Laboratory Improvement Act of 1988 (CLIA '88). Some of these tests rely on the use of analyte specific reagents and are subject to specific labeling requirements by the US Food and Drug Administration. Such diagnostic tests may only be performed in a facility that is certified by the Department of Health and Human Services as a high complexity laboratory under CLIA '88. The FDA has determined that such clearance or approval is not necessary. This test is used for clinical purposes. It should not be regarded as investigational or for research. Nevertheless, federal rules concerning the medical use of analyte specific reagents require that the following disclaimer be attached to the report: This test was developed and its performance characteristics determined by the Surgical Pathology Department [facility]. It has not been cleared or approved by the U. S. Food and Drug Administration. Fatoumata Sellers MD LAB CYTOLOGY ORDERABL ES Final Result PATHOLOGY [address] [place] [address] from Last 3 Months or Most Recently Relevant to Health Maintenance Insurance [employer] Advance Directives For more information, please contact: [phone] * Full Code (Latest Code Status on File) Date Activated Date Inactivated Comments 04/26/2025 8:18 AM 04/28/2025 7:29 PM * Full Code Date Activated Date Inactivated Comments 04/25/2025 9:40 PM 04/26/2025 8:18 AM Full CPR in ca se of cardiopulmonary arrest Care Teams Corporate Sales Representative Relationship Specialty Start Date End Date No, Physician PCP - General 05/18/24 Fatoumata Sellers MD [address] [place] [address] Dietitian Teaching Obstetrics and Gynecology 04/28/25
== END 2025-06-16 11:35 | disposition home or self-care (01) ==
PROVIDERS: Emergency Provider Nurse Practitioner Family
DX: H66.91 Otitis media, unspecified, right ear (principal)
CPT/HCPCS: 99213; G0463